=== PATIENT | male | born 1995 | race Caucasian/White ===

== ENCOUNTER 2020-05-04 23:48 | Emergency (ER) | payer OTHER, SELFPAY ==
[~2020-05-04] VITALS: Ht 177.8 cm; Wt 81.6 kg
[2020-05-04 23:55] VITALS: BP_SYST 153
[2020-05-05 01:30] VITALS: BP_SYST 153
== END 2020-05-05 01:30 | disposition home or self-care (01) ==
LOC: SED 23:48
DX: R07.89 Other chest pain (principal); R06.6 Hiccough; Z20.828 Contact with and (suspected) exposure to other viral communicable diseases
CPT/HCPCS: 71045; 99284; C9803; U0003